=== PATIENT | female | born 1975 | race Caucasian/White ===

== ENCOUNTER → 2017-02-26 | Outpatient (CLI) | payer OTHER ==
[~2017-02-26] MED LIST: FLEXERIL 1010 MG/TAB PO; NORCO 325 MG-7.1 TAB PO; PRENATAL1 TA1 PO; VITAMIN D 50,1.25 MG PO
== END ==
LOC: COL.PUL 02-24 11:20
DX: R06.02 Shortness of breath (principal)

== ENCOUNTER → 2020-07-10 | Outpatient (REF) | LOC: COL.CARD 09:51 | DX: Z01.818 Encounter for other preprocedural examination (principal) ==

== ENCOUNTER 2024-04-26 04:40 | Emergency (ER) | payer OTHER ==
[~2024-04-26] VITALS: Ht 167.6 cm; Wt 113.6 kg
[2024-04-26 04:47] VITALS: TEMP 98.1
[2024-04-26 05:22] LABS: BASO # 0.1 K/mm3 (0.0-0.2); BASO % 0.5 % (0.0-2.0); EOS % 0.3 % (0.0-4.0); GRAN # 10.6 K/mm3 (1.4-6.5); GRAN % 69.8 % (42.2-75.2); HEMOGLOBIN 14.3 g/dl (12.5-16.0); LYMPH # 3.3 K/mm3 (1.2-3.4); LYMPH % 21.9 % (20.0-51.0); MEAN CELL VOLUME 89 fl (80.0-100.0); MEAN CORPUSCULAR HEMOGLOBIN 29 pg (27-31); MEAN CORPUSCULAR HGB CONC 33 g/dl (33.0-37.0); MEAN PLATELET VOLUME 11.1 fl (7.4-10.4); MONO # 1.1 K/mm3 (0.1-0.6); MONO % 7.1 % (1.7-9.3); PLATELET COUNT 265 K/mm3 (130-400); RED BLOOD COUNT 4.86 M/mm3 (4.10-5.30); REDCELL DISTRIBUTION WIDTH-CV 13.4 % (11.5-14.5)
[2024-04-26] MEDS ORDERED: Ondansetron 4 MG/2 ML VIAL IV ONE (05:30)
[2024-04-26] MEDS ORDERED: NS 1,000 ML IV ONE (05:30)
[2024-04-26] MEDS ORDERED: Morphine 4 MG/ML VIAL IV ONE (05:30)
[2024-04-26 05:55] LABS: ALBUMIN 3.3 g/dL (3.5-5.0); BILIRUBIN,TOTAL 0.3 mg/dL (0.2-1.2); CALCIUM 9.4 mg/dL (8.4-10.2); CREATININE, serum 0.78 mg/dL (0.57-1.11); POTASSIUM 3.6 mEq/L (3.5-4.5); TOTAL PROTEIN 7.1 g/dl (6.2-8.1)
[2024-04-26] MEDS ORDERED: NS 100 ML IV SCH (07:25)
[2024-04-26] MEDS ORDERED: Iohexol 300 - 100 ML VIAL IV ONE (07:26)
[2024-04-26 07:30] LABS: PH 5.5 (5.0-8.5); URINE APPEARANCE CLOUDY (CLEAR/HAZY); URINE BLOOD NEGATIVE (NEGATIVE); URINE COLOR YELLOW (YELLOW); URINE GLUCOSE NEGATIVE (NEGATIVE); URINE KETONE NEGATIVE (NEGATIVE); URINE NITRATE NEGATIVE (NEGATIVE); URINE PROTEIN(semi-quant) NEGATIVE (NEGATIVE); URINE UROBILINOGEN 0.2 E.U/dL (0.2-1.0)
[2024-04-26 07:59] LABS: COLLECTION METHOD CLEAN CATCH
[2024-04-26] MEDS ORDERED: AMOXICILLIN 8751 TAB PO (08:34)
[2024-04-26] MEDS ORDERED: DIFLUCAN 100MG100 MG PO (08:34)
[2024-04-26] MEDS ORDERED: NORCO 325 MG-51 TAB PO (08:34)
[2024-04-26] MEDS ORDERED: Amoxicillin/Clavulanate K+ 875/125 MG TAB PO ONE (08:45)
[2024-04-26 08:52] VITALS: BP 120/80; PULSE 68
== END 2024-04-26 08:54 | disposition home or self-care (01) ==
LOC: COL.ER 04:40
PROVIDERS: Emergency Medicine
DX: K57.32 Diverticulitis of large intestine without perforation or abscess without bleeding (principal)
CPT/HCPCS: J2270; J2405; J7030; Q9967